=== PATIENT | male | born 1960 | race Caucasian/White ===

== ENCOUNTER 2017-07-14 15:02 | Emergency (ER) | payer SELFPAY ==
[~2017-07-14] VITALS: Ht 177.8 cm; Wt 75.3 kg
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
[2017-07-14 16:00] LABS: BASO % 0 % (0-3); EOS % 2 % (0-3); HEMATOCRIT 45.5 % (39.0-53.0); HEMOGLOBIN 15.3 g/dL (13.0-17.5); LYMPH # 1.7 x10^3/uL (1.0-4.8); LYMPH % 34 % (24-48); MEAN CORPUSCULAR HEMOGLOBIN 31 pg (25-35); MEAN CORPUSCULAR HGB CONC 34 g/dL (31-37); MEAN CORPUSCULAR VOLUME 92 fL (79-100); MONO % 8 % (0-9); NEUT % 55 % (31-73); PLATELET COUNT 158 x10^3/uL (140-400); RED BLOOD COUNT 4.95 x10^6/uL (4.30-5.70); RED CELL DISTRIBUTION WIDTH 13.6 % (11.5-14.5); WHITE BLOOD COUNT 5.1 x10^3/uL (4.0-11.0)
[2017-07-14 16:03] LABS: BILIRUBIN,URINE NEGATIVE (NEG); GLUCOSE,URINE NEGATIVE (NEG); NITRITE,URINE NEGATIVE (NEG); PH,URINE 6.5; PROTEIN,URINE NEGATIVE (NEG-TRACE)
[2017-07-14 16:13] LABS: BACTERIA,URINE 0 /HPF (0-FEW); RBC,URINE 0 /HPF (0-2); SQUAMOUS EPITHELIAL CELL,UR FEW /LPF; WBC,URINE 0 /HPF (0-4)
[2017-07-14 16:18] LABS: BARBITURATES NEG (NEG); BENZODIAZEPINES POS (NEG); CANNABINOIDS POS (NEG); COCAINE NEG (NEG); METHADONE NEG (NEG); OPIATES POS (NEG); PHENCYCLIDINE NEG (NEG)
[2017-07-14 16:23] LABS: ALBUMIN 3.2 g/dL (3.4-5.0); CALCIUM 8.2 mg/dL (8.5-10.1); CREATININE 1.1 mg/dL (0.7-1.3); DIRECT BILIRUBIN 0.1 mg/dL (0.0-0.2); GFR 68.8; MAGNESIUM 1.7 mg/dL (1.8-2.4); TOTAL BILIRUBIN 0.3 mg/dL (0.2-1.0); TOTAL PROTEIN 6.9 g/dL (6.4-8.2)
[2017-07-14 16:25] LABS: CKMB MASS 4.4 ng/mL (0.0-3.6)
[2017-07-14 18:15] VITALS: BP 170/96
[2017-07-14] MEDS ORDERED: AMLO5TAB4 PO (18:25)
--- NOTE | 2017-07-14 19:32 | EKG ---
[facility] [address] [place] [address] Test Date: 2017-07-14 Test Time: 15:17:25 Pat Name: BEL SANTAMARIA Department: Room: Gender: M Vtc Technician: : 1960 Requested By: CHLOÉ KHALIL Order Number: [id number] Reading MD: Sam Pearson Measurements Intervals Fowler Rate: 64 P: 59 MT: 168 QRS: 47 QRSD: 86 T: 21 QT: 360 QTc: 375 Interpretive Statements SINUS RHYTHM QRS(T) CONTOUR ABNORMALITY CONSIDER ANTEROSEPTAL MYOCARDIAL DAMAGE POSSIBLY ABNORMAL ECG RI6.01 No previous ECG available for comparison Electronically Signed On 07-27-2017 10:41:13 DOCUMENTATION ANALYST by Sam Pearson
--- NOTE | 2017-07-15 09:38 | RAD ---
One view chest 07/14/2017 Clinical indication: Chest pain. Comparison: None. Findings: Mild patchy opacities in the right lung base. No pleural effusion, pneumothorax or focal consolidation. Impression: Mild patchy opacities in the right lung base, may represent aspiration, pneumonitis or pneumonia. Follow-up 2 view chest radiograph is recommended to resolution. These results were discussed with Dr. Woo of the emergency service by telephone at 9:30 AM 07/15/[address] Beto Bermudez
== END 2017-07-14 18:35 | disposition left against medical advice (07) ==
LOC: ER 15:02
DX: M79.645 Pain in left finger(s) (principal); L98.8 Other specified disorders of the skin and subcutaneous tissue; R06.02 Shortness of breath; F41.9 Anxiety disorder, unspecified; F17.210 Nicotine dependence, cigarettes, uncomplicated; F15.10 Other stimulant abuse, uncomplicated; Z88.5 Allergy status to narcotic agent; Z88.0 Allergy status to penicillin
CPT/HCPCS: 36415; 71010; 80048; 80076; 80307; 81001; 82553; 83690; 83735; 83880; 84484; 85025; 85651; 86140; 87040; 93005; 99285-25; G0479